=== PATIENT | male | born 1935 | race Caucasian/White ===

== ENCOUNTER → 2016-06-15 | Outpatient (CLI) | payer MEDICARE, OTHER ==
[~2016-06-15] MED LIST: AMLO5TAB96 PO; CARD2TAB PO; PROS5TAB2 PO
[2016-06-15 13:59] LABS: BICARBONATE 23.1 MEQ/L (21.0-32.0); POTASSIUM 5.2 MEQ/L (3.5-5.1)
== END ==
LOC: CLAB 11:19
PROVIDERS: ATTEND Internal Medicine Cardiovascular Disease
DX: I48.91 Unspecified atrial fibrillation (principal)
CPT/HCPCS: 36415; 80048